=== PATIENT | male | born 1965 | race African-American/Black ===

== ENCOUNTER 2019-07-31 11:35 | Emergency (ER) | payer BC ==
[2019-07-31 11:43] VITALS: BMI 41.7
[2019-07-31] MEDS ORDERED: amLODIPine BESYLATE 10 MG TABLET (FP) PO ONE (12:27)
[2019-07-31] MEDS ORDERED: amLODIPine BESYLATE 5 MG TABLET (FP) ONE (12:34)
[2019-07-31 12:42] LABS: BASO % 0.8 % (0-2.0); EOS % 4.1 % (0-4.5); HEMATOCRIT 43.2 % (35.4-49); HEMOGLOBIN 14.1 GM/dL (11.7-16.9); LYMPH % 41.2 % (8-40); MCH 27.4 pg (25.7-33.7); MCHC 32.6 g/dl (32.0-35.9); MEAN PLT VOLUME 8.5 fl (7.5-11.1); MONO % 11.4 % (3.8-10.2); NEUT % 42.5 % (42.8-82.8); PLATELET COUNT 232 K/MM3 (134-434); RBC 5.14 M/mm3 (4.00-5.60); RDW 14.3 % (11.9-15.9); WHITE BLOOD COUNT 5.5 K/mm3 (4.0-10.0)
--- NOTE | 2019-07-31 12:53 | PDOC ---
History of Present Illness - General Chief Complaint: Blood Pressure Problem Stated Complaint: BP PROBLEM Time Seen by Provider: 07/31/19 12:07 History Source: Patient Exam Limitations: Clinical Condition - History of Present Illness Initial Comments: 07/31/19 12:51 Patient with remote past medical history of hypertension previously on meds or 5 years ago but has not been on meds for the past 3 years presented for evaluation status post presenting to urgent care for physical and found to have elevated blood pressure. Patient does not recall medication he was in the past but report has not seen PCP in over 3 years. Denies headache, nausea, vomiting , chest pain, dizziness, blurry vision or change in vision. Denies any symptoms Is this a multiple visit Asthma Patient?: No Past History - Past Medical History Allergies/Adverse Reactions: Allergies Allergy/AdvReac Type Severity Reaction Status Date / Time No Known Allergies Allergy Verified 07/31/19 11:44 Home Medications: Ambulatory Orders Ibuprofen [Motrin] 800 mg PO TID #30 tablet 06/03/15 levoFLOXacin [Levaquin -] 500 mg PO DAILY #7 tablet 06/03/15 Amlodipine Besylate [Norvasc -] 10 mg PO DAILY #30 tablet 07/31/19 COPD: No - Surgical History Abdominal Surgery: Yes (hernia repair) - Psycho Social/Smoking Cessation Hx Smoking History: Never smoked Review of Systems - Review of Systems Able to Perform ROS?: Yes Is the patient limited Liberian proficient: No Constitutional: No: Chills, Fever, Malaise HEENTM: No: Symptoms Reported, See HPI, Eye Pain, Blurred Vision, Tearing, Recent change in vision, Double Vision, Cataracts, Ear Pain, Ocular Prothesis, Ear Discharge, Nose Pain, Nose Congestion, Tinnitus, Nose Bleeding, Hearing Loss , Throat Pain, Throat Swelling, Mouth Pain, Dental Problems, Difficulty Swallowing, Mouth Swelling, Other Respiratory: No: Symptoms reported, See HPI, Cough, Orthopnea, Shortness of Breath, SOB with Exertion, SOB at Rest, Stridor, Wheezing, Productive cough, Hemoptysis, Other Cardiac (ROS): No: Symptoms Reported, See HPI, Chest Pain, Edema, Irregular Heart Rate, Lightheadedness, Palpitations, Syncope, Chest Tightness, Other ABD/GI: No: Symptoms Reported, Nausea, Vomiting Musculoskeletal: No: Symptoms Reported Integumentary: No: Symptoms Reported Neurological: No: Symptoms reported, See HPI, Headache, Numbness, Paresthesia, Pre-Existing Deficit, Weakness, Unsteady Gait, Ataxia All Other Systems: Reviewed and Negative *Physical Exam - Vital Signs Last Vital Signs Temp Pulse Resp BP Pulse Ox 98 F 70 18 197/95 H 98 07/31/19 11:38 07/31/19 11:38 07/31/19 11:38 07/31/19 11:38 07/31/19 11:38 - Physical Exam General Appearance: Yes: Nourished, Appropriately Dressed. No: Apparent Distress HEENT: positive: INÉS, Normal ENT Inspection Neck: positive: Supple Respiratory/Chest: positive: Lungs Clear, Normal Breath Sounds. negative: Respiratory Distress, Accessory Muscle Use Cardiovascular: positive: Regular Rhythm, Regular Rate. negative: Murmur Musculoskeletal: positive: Normal Inspection Extremity: positive: Normal Capillary Refill, Normal Inspection Integumentary: positive: Normal Color. negative: Diaphoresis Neurologic: positive: Fully Oriented, Alert, Normal Mood/Affect, Normal Response ED Treatment Course - LABORATORY CBC & Chemistry Diagram: 07/31/19 12:36 07/31/19 12:36 - Medications Given in the ED: ED Medications Discontinued Medications Generic Name Dose Route Start Last Admin Trade Name Freq PRN Reason Stop Dose Admin Amlodipine Besylate 10 mg 07/31/19 12:27 07/31/19 12:37 Norvasc - PO 07/31/19 12:28 10 mg ONCE ONE Administration Medical Decision Making - Medical Decision Making 07/31/19 12:52 Patient with remote past medical history of hypertension previously on meds or 5 years ago but has not been on meds for the past 3 years presented for evaluation status post presenting to urgent care for physical and found to have elevated blood pressure. Patient does not recall medication he was in the past but report has not seen PCP in over 3 years. Denies headache, nausea, vomiting , chest pain, dizziness, blurry vision or change in vision. Denies any symptoms Clinical exam unremarkable with patient no acute distress. Lungs clear to auscultation bilateral and normal cardiac exam. CBC, CMP and thyroid profile lab ordered. Will give patient a trial of Norvasc 10 mg p.o. elevated blood pressure. Reassess after 30 minutes 07/31/19 13:33 Patient with improving blood pressure of 166/80, Norvasc 10 mg. Patient still asymptomatic. CBC, chemistry and thyroid labs are unremarkable. Patient stable for discharge on Norvasc daily with PCP follow-up Discharge - Discharge Information Problems reviewed: Yes Clinical Impression/Diagnosis: Essential hypertension Condition: Improved Disposition: HOME - Admission No - Additional Discharge Information Prescriptions: Amlodipine Besylate [Norvasc -] 10 mg PO DAILY #30 tablet - Follow up/Referral Referrals: Sabino Culver MD [Staff Physician] - - Patient Discharge Instructions Patient Printed Discharge Instructions: DI for High Blood Pressure, How to Monitor Your Blood Pressure at Home Additional Instructions: Your blood work was normal. Take prescribed her blood pressure medication as prescribed. Follow-up referred primary care as soon as possible for blood pressure monitoring - Post Discharge Activity
[2019-07-31 13:10] LABS: ALBUMIN 3.5 g/dl (3.4-5.0); BILIRUBIN,TOTAL 0.6 mg/dL (0.2-1); BLOOD UREA NITROGEN 11.7 mg/dL (7-18); TOT PROT 7.2 g/dl (6.4-8.2)
[2019-07-31 13:17] VITALS: BP 166/80; PULSE 71; TEMP 98.5
== END 2019-07-31 13:41 | disposition home or self-care (01) ==
LOC: JER 11:35
DX: I10 Essential (primary) hypertension (principal); Z98.890 Other specified postprocedural states
CPT/HCPCS: 36415; 80053; 84439; 84443; 85025; 99282-25

== ENCOUNTER 2019-10-02 08:43 | Day surgery (SDC) | payer BC ==
[2019-10-01 11:59] VITALS: BMI 41.8
[2019-10-02 11:01] VITALS: BP 115/55; PULSE 66; TEMP 98.5
== END 2019-10-02 11:01 | disposition home or self-care (01) ==
LOC: JASU-ENDO 08:43
PROVIDERS: ATTEND Internal Medicine Gastroenterology
PROC: 0DJD8ZZ Inspection of Lower Intestinal Tract, Via Natural or Artificial Opening Endoscopic (ICD-10-PCS; principal; 2019-10-02 09:45)
DX: Z12.11 Encounter for screening for malignant neoplasm of colon (principal); K57.30 Diverticulosis of large intestine without perforation or abscess without bleeding; K63.89 Other specified diseases of intestine
CPT/HCPCS: 82962

== ENCOUNTER 2020-05-14 20:27 | Emergency (ER) | payer BC ==
[2020-05-14 20:38] VITALS: BP 146/78; PULSE 66; TEMP 97; BMI 37.0
--- OUTSIDE RECORDS SUMMARY | 2020-05-14 21:06 | XMS ---
:1965 Author Organization [facility] Support Name Relationship Address Phone [employer] Unavailable [address] [place] [address] SELIN JAVIER [address] [place] [address] Re-disclosure Warning The records that you are about to access may contain information from federally- assisted alcohol or drug abuse programs. If such information is present, then the following federally mandated warning applies: This information has been disclosed to you from records protected by federal confidentiality rules (42 CFR part 2). The federal rules prohibit you from making any further disclosure of this information unless further disclosure is expressly permitted by the written consent of the person to whom it pertains or as otherwise permitted by 42 CFR part 2. A general authorization for the release of medical or other information is NOT sufficient for this purpose. The Federal rules restrict any use of the information to criminally investigate or prosecute any alcohol or drug abuse patient.The records that you are about to access may contain highly sensitive health information, the redisclosure of which is protected by Article 27-F of the [place] Public Health law. If you continue you may haveaccess to information: Regarding HIV / AIDS; Provided by facilities licensed or operated by the [place] [employer] Office of Mental Health; or Provided by the [place] [employer] Office for People With Developmental Disabilities. If such information is present, then the following [employer] mandated warning applies: This information has been disclosed to you from confidential records which are protected by state law. State law prohibits you from making any further disclosure of this information without the specific written consent of the person to whom it pertains, or as otherwise permitted by law. Any unauthorized further disclosure in violation of state law may result in a fine or correction sentence or both. A general authorization for the release of medical or other information is NOT sufficient authorization for further disclosure. Insurance Providers Payer name Policy type / Policy ID Covered Covered green party's Policy Plan Coverage type green party ID relationship to [employer] Information [employer] [facility] [id number] [place] [id number] [facility] [id number] [place] [id number]
--- NOTE | 2020-05-14 21:29 | PDOC ---
History of Present Illness - General Chief Complaint: Pain Stated Complaint: PAIN ON TOE Time Seen by Provider: 05/14/20 21:15 History Source: Patient Exam Limitations: No Limitations - History of Present Illness Initial Comments: 05/14/20 21:26 6-month old female child brought in by mother born at 40 weeks via due to breech position otherwise healthy, immunizations are up-to-date. Mom states child received 2 vaccines on May 10 2020 since then mom feels child has been warm to touch, had very minimal runny nose and has been acting fussy. Patient has been wetting diapers, and drinking and eating normally. Denies sick contacts or recent travel. ROS: as above PE: GENERAL: well-appearing, NAD HEAD: NCAT EYES: Pupils equal, round and reactive to light, sclera anicteric, conjunctiva clear ENT: pharynx: no erythema, no exudate, uvula midline NECK: supple CHEST: nontender RESP: clear, no w/r/r CARDIO: rrr, no m/g/r ABD: +BS, soft, nontender, non distended BACK: no midline spinal ttp, no CVAT EXTREMITIES: Left fifth toe with small callus without surrounding erythema, tenderness to palpation or drainage, normal range of motion, no edema NEUROLOGICAL: Normal speech, normal gait SKIN: Warm, Dry Is this a multiple visit Asthma Patient?: No Past History - Medical History Allergies/Adverse Reactions: Allergies Allergy/AdvReac Type Severity Reaction Status Date / Time No Known Allergies Allergy Verified 05/14/20 20:38 Home Medications: Ambulatory Orders Amlodipine Besylate [Norvasc -] 10 mg PO DAILY #30 tablet 07/31/19 Metformin HCl [Glucophage] 500 mg PO BID 10/01/19 Multivitamin [Multiple Vitamins] 1 each PO DAILY 10/01/19 Atorvastatin Calcium 10 mg PO DAILY 10/02/19 Lisinopril 5 mg PO DAILY 10/02/19 Cardiac Disorders: (MVP) COPD: No HTN: Yes Hypercholesterolemia: Yes - Surgical History Abdominal Surgery: Yes (UMBILICAL REPAIR WITH MESH ) - Psycho-Social/Smoking History Smoking History: Never smoked Have you smoked in the past 12 months: No *Physical Exam - Vital Signs Last Vital Signs Temp Pulse Resp BP Pulse Ox 97 F L 66 18 146/78 97 05/14/20 20:35 05/14/20 20:35 05/14/20 20:35 05/14/20 20:35 05/14/20 20:35 Medical Decision Making - Medical Decision Making 05/14/20 21:27 6-month old female child brought in by mother born at 40 weeks via due to breech position otherwise healthy, immunizations are up-to-date. Mom states child received 2 vaccines on May 10 2020 since then mom feels child has been warm to touch, had very minimal runny nose and has been acting fussy. Patient has been wetting diapers, and drinking and eating normally. Denies sick contacts or recent travel. 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
== END 2020-05-14 22:07 | disposition home or self-care (01) ==
LOC: JERFT 20:27
DX: L84 Corns and callosities (principal)
CPT/HCPCS: 99282-25